=== PATIENT | female | born 1975 | race Caucasian/White ===

== ENCOUNTER → 2023-12-27 11:42 | Outpatient (REF) | payer OTHER, SELFPAY | LOC: WDC 11:42 | PROVIDERS: ATTENDING PHYSICIAN Internal Medicine | DX: Z12.31 Encounter for screening mammogram for malignant neoplasm of breast (principal) | CPT/HCPCS: 77063; 77067 ==

== ENCOUNTER → 2024-07-10 13:11 | Outpatient (REF) | payer OTHER, SELFPAY | LOC: RAD 13:11 | PROVIDERS: ATTENDING PHYSICIAN Nurse Practitioner | DX: L03.115 Cellulitis of right lower limb (principal) | CPT/HCPCS: 93971 ==

== ENCOUNTER 2024-07-22 11:37 | Emergency (ER) | payer OTHER, SELFPAY ==
[2024-07-22 11:39] VITALS: BP 189/108
[2024-07-22 12:05] LABS: % Basophils 0.1 % (0-2); % Immature Granulocytes 0.5 % (0-0.5); % Lymphocytes 22.8 % (20.5-51.1); % Neutrophils 69.6 % (42.2-75.2); Absolute Eosinophils 0.2 10^3/uL (0-0.7); Absolute Immature Granulocytes 0.1 10^3/uL (0-0.05); Absolute Lymphocytes 2.3 10^3/uL (1.2-3.4); Absolute Monocytes 0.5 10^3/uL (0.1-0.6); Absolute Neutrophils 6.9 10^3/uL (1.4-6.5); Hematocrit 36.7 % (37.0-47.0); Mean Corp Hgb Conc. 32.7 g/dL (33.0-37.0); Mean Corpuscular Hgb 27.9 pg (27.0-31.0); Mean Corpuscular Volume 85.3 fL (81.0-99.0); Mean Platelet Volume 9.3 fL (7.4-10.4); Nucleated Red Blood Cells % 0 %; Platelet Count 335 10^3/uL (130-400); Red Cell Dist. Width 13.9 % (11.5-14.5); White Blood Cell Count 9.9 10^3/uL (4.8-10.8)
[2024-07-22 12:20] LABS: ALT (SGPT) 30 U/L (0-35); AST (SGOT) 27 U/L (14-36); Alkaline Phosphatase 107 U/L (38-126); Blood Urea Nitrogen 17 mg/dl (7-17); Carbon Dioxide 30 mmol/L (22-30); Chloride 102 mmol/L (98-107); Glucose 112 mg/dl (70-99); Potassium 4.8 mmol/L (3.5-5.1); Sodium 142 mmol/L (135-145); Total Bilirubin 0.5 mg/dl (0.2-1.3); Total Protein 7.3 g/dl (6.3-8.2); eGFR > 60.00
--- NOTE | 2024-07-22 12:28 | ED.GENMED ---
History of Present Illness
<Danyelle Cunha PA-C - Last Filed: 07/22/24 20:04>
General
Chief Complaint: Skin Problem
Source: patient
Exam Limitations: none
Time Seen by Provider: 07/22/24 12:08
Nursing documentation reviewed up to this point in time: agreed with
History of Present Illness
History of Present Illness:
This is a 48 y/o female with a PMH of asthma, HTN, HLP, avinash's thyroiditis, presenting today with concerns of an abscess on her right lower extremity. Patient reports that a week ago, she started to develop pain and redness on her right lower
extremity. She was seen by her PCP and an ultrasound was performed which was negative for blood clot and she was started on Keflex for cellulitis. She finished the course of Keflex 3 days ago. She states that a few days ago that during the course of
the antibiotics, she developed an abscess which started to drain on its own. She stated that she felt warm and feverish a few days ago but that has since resolved. Today she feels well, denies fevers or chills, denies nausea or vomiting. She denies
chest pain or shortness of breath. She denies any allergies to antibiotics.
Review of Systems
<Danyelle Cunha PA-C - Last Filed: 07/22/24 20:04>
Review of Systems
All Other Systems: ROS reviewed and negative except as documented in HPI and ROS
Phy Exam
<Danyelle Cunha PA-C - Last Filed: 07/22/24 20:04>
Physical Exam
Physical Exam:
General: Patient is well appearing and in no acute distress; non-toxic
Skin: Warm and dry, there is redness and warmth to the right anterior lower extremity with a central area of fluctuance that has two small sites of active purulent drainage
Head: Normocephalic, atraumatic
Eyes: Sclera non-icteric. EOMs intact.
Cardiac: Regular rate and rhythm, no murmurs
Peripheral Vascular: 2+ dorsalis pedis and dorsalis pedis pulses bilaterally
Pulm: Normal respiratory effort
Neuro: CN II-XII intact, no focal neurologic deficits.
Psychiatric: Appropriate mood and affect.
Course
<Danyelle Cunha PA-C - Last Filed: 07/22/24 20:04>
Orders/Labs/Results
Orders:
Orders
07/22/24 11:48
CMP [Comprehensive Metabolic Panel] Urgent
Complete Blood Count/With Diff Urgent
07/22/24 14:20
Wound Culture [Wound/Abscess/Other Culture] Urgent
UZAIR Source: Abscess
Specimen Description:
Date Specimen was Collected: 07/22/24
Time Specimen was Collected: 14:13
07/22/24 14:22
Clindamycin HCl [Cleocin] 300 mg .ROUTE .STK-MED ONE
07/22/24 14:25
Clindamycin HCl [Cleocin] 450 mg PO NOW STA
Abnormal Lab Results
07/22/24
11:48
Hct 36.7 L %
(37.0-47.0)
MCHC 32.7 L g/dL
(33.0-37.0)
Abs Immat Gran (auto) 0.1 H 10^3/uL
(0-0.05)
Absolute Neuts (auto) 6.9 H 10^3/uL
(1.4-6.5)
Glucose 112 H mg/dl
(70-99)
07/22/24 11:48
07/22/24 11:48
Vital Signs
Initial and Last Documented VS:
Initial Vital Signs
Temp Pulse Resp BP Pulse Ox
98.8 F 89 16 189/108 100
07/22/24 11:39 07/22/24 11:39 07/22/24 11:39 07/22/24 11:39 07/22/24 11:39
Last Documented Vital Signs
Temp Pulse Resp BP Pulse Ox
98.8 F 89 16 189/108 100
07/22/24 11:39 07/22/24 11:39 07/22/24 11:39 07/22/24 11:39 07/22/24 11:39
<Armen Aguilar MD - Last Filed: 07/22/24 16:21>
Orders/Labs/Results
Orders:
Orders
07/22/24 11:48
CMP [Comprehensive Metabolic Panel] Urgent
Complete Blood Count/With Diff Urgent
07/22/24 14:20
Wound Culture [Wound/Abscess/Other Culture] Urgent
UZAIR Source: Abscess
Specimen Description:
Date Specimen was Collected: 07/22/24
Time Specimen was Collected: 14:13
07/22/24 14:22
Clindamycin HCl [Cleocin] 300 mg .ROUTE .STK-MED ONE
07/22/24 14:25
Clindamycin HCl [Cleocin] 450 mg PO NOW STA
Abnormal Lab Results
07/22/24
11:48
Hct 36.7 L %
(37.0-47.0)
MCHC 32.7 L g/dL
(33.0-37.0)
Abs Immat Gran (auto) 0.1 H 10^3/uL
(0-0.05)
Absolute Neuts (auto) 6.9 H 10^3/uL
(1.4-6.5)
Glucose 112 H mg/dl
(70-99)
07/22/24 11:48
07/22/24 11:48
Vital Signs
Initial and Last Documented VS:
Initial Vital Signs
Temp Pulse Resp BP Pulse Ox
98.8 F 89 16 189/108 100
07/22/24 11:39 07/22/24 11:39 07/22/24 11:39 07/22/24 11:39 07/22/24 11:39
Last Documented Vital Signs
Temp Pulse Resp BP Pulse Ox
98.8 F 89 16 189/108 100
07/22/24 11:39 07/22/24 11:39 07/22/24 11:39 07/22/24 11:39 07/22/24 11:39
Procedures
<Danyelle Cunha PA-C - Last Filed: 07/22/24 20:04>
Incision/Drainage/Joint Aspiration
Right Anterior Calf:
Anethesia: 1% Lidocaine with Epi
Preparation: cleaned with Betadine
Type of procedure: incise and drain
Nature of site: abscess
Description of abscess: greater than 3cm
Loculations broken up: No
How much fluid was obtained?: large amount
Fluid description: cloudy and serosanguinous
Treatment: left open for drainage
<Danyelle Cunha PA-C - Last Filed: 07/22/24 20:04>
MDM/Problems Addressed
Differential Diagnosis Includes:
ddx include cellulitis, abscess, erysipelas, peripheral venous disease
MDM/Problems Addressed:
Skin lesion:
48-year-old female presents today with concerns of a abscess on her right lower extremity. Patient reports that a week ago, she started to develop pain and redness on her right lower extremity. She was seen by her PCP and an ultrasound was performed
which was negative for blood clot and she was started on Keflex for cellulitis. She finished the course of Keflex 3 days ago. During a course of antibiotics, she developed an abscess that started draining on its own. Patient saw her PCP again
today in follow-up but sent her to the emergency department for abscess drainage. Here in the ER, her abscess was incised and drained, draining a moderate amount of purulent fluid. Patient did have relief of her pain with this. The wound was
cultured. Patient's lab work is unremarkable, does not meet sepsis criteria, she has no fever, no indication for admission for IV antibiotics at this time. We did start patient on clindamycin to cover for MRSA. Advised patient to return to
emergency department for admission should she not see improvement within 3 days. Patient expressed understanding. Patient stable for discharge.
Chronic conditions affecting care:
Asthma, Avinash's thyroiditis
Acute Exacerbation and/or Progression of Chronic Illness:
n/a
<Danyelle Cunha PA-C - Last Filed: 07/22/24 20:04>
*Pulse Oximetry
Patient hypoxic: no
*Critical Care Note
Total Time (30-74mins, 75-104mins- exclusive of procedures): Not Applicable
Data Reviewed
Review of Other/Old Records Reveals: Records (No previous ER physician documentation to review) and Discharge Summary (No discharge summary to review)
Source: patient and records
Prescriptions/Medications Considered But Not Given:
n/a
Further Testing Considered But Not Given:
n/a
<Danyelle Cunha PA-C - Last Filed: 07/22/24 20:04>
Patient Management
Escalation/DeEscalation of care consider admission/obs:
Patient stable for discharge
ED Attending Note
<Danyelle Cunha PA-C - Last Filed: 07/22/24 20:04>
-
Portions of this chart may have been created with voice recognition software.� Occasional wrong word or��sound alike� substitutions may have occurred due to the inherent limitations of voice recognition software.
<Armen Aguilar MD - Last Filed: 07/22/24 16:21>
ED Attending Note
Patient seen and examined by attending physician: Yes
ED Attending Note:
I have seen and evaluated the patient with a [id number] encounter. I have spoken to the advance practicer provider and involved in the medical history, the physical exam, medical decision making.
Evaluation and management service: agree unless noted differently below.
Results interpretation: agree unless noted differently below.
Focused HPI: 48-year-old female with history as documented presents with redness, swelling, pain anterior right lower leg. Noticed symptoms 2 weeks ago, seen by primary care physician and was started on Keflex and took a 10-day course. She said
she had some mild improvement initially and then symptoms worsened after completion of her course a few days ago. Seen today again in the office found to have findings concerning for an abscess and sent to the ER. She said she had fever after
initial onset 2 weeks ago has not had fever since. She denies any other complaints. She did note some spontaneous drainage over the past 24 hours.
Physical exam: Awake alert not in distress. Hypertensive otherwise normal vitals. She has oblong area of induration approximately 5 x 3 cm left anterior bender with punctate area of tissue necrosis and purulent drainage towards the center; area is
fluctuant, no crepitus. There is a wide surrounding rim of erythema/cellulitis warm and tender to the touch extending proximally towards the tibial tuberosity and distally towards the ankle as well as slightly posteriorly towards the calf. She
does have strong palpable DP pulse on the right. She has bilateral but symmetric edema in the lower extremities.
Medical Decision Makin-year-old female presents with increasing redness and area concerning for abscess on the right lower leg�just completed a course of Keflex for cellulitis on the leg. Had initial improvement and then worsened once again.
Exam is consistent with abscess and surrounding cellulitis. Abscess was I&D and here in the ER with significant purulent drainage. Left open for drainage and dressing applied. Discussed with patient option of admission for IV antibiotics given
that she did already complete a full course of Keflex versus discharge after an I&D here on different antibiotic (MRSA coverage with clindamycin) for a 48 to 72-hour trial. She strongly prefers trial of antibiotic as an outpatient rather than
admission. Using shared decision making discharged on clindamycin with plan to return if symptoms or not improving or if they are worsening at any point. Otherwise follow-up with PCP.
Discharge Plan
Departure
Patient Disposition: Home (Routine Discharge)
Date of Disposition: 07/22/24
Time of Disposition: 14:01
Patient with high blood pressure during this ER visit?: Yes
Condition: Good
Discharge Problem:
Abscess, Cellulitis
Instructions: Wound Care ([place]), [facility], BLOOD PRESSURE, Skin Abscess
Prescriptions:
New
clindamycin HCl 300 mg capsule
300 mg PO QID 7 Days Qty: 28 0RF
No Action
paroxetine HCl [Paxil] 40 mg Tablet
40 mg PO QPM
Adrenal Forte
1 cap PO DAILY
B [place]
1 cap PO DAILY
Berberine Synergy
1 cap PO DAILY
Black Cumin Seed Oil
1 cap PO BID
Coq Max Ubiquinol
1 tab PO BID
Dem Eval
1 tab PO DAILY
Dha Cap
1 cap PO QPM
K2 + D3
1 cap PO DAILY
Magnesium Buffered Cheolate
1 cap PO . DINNER & BEDTIME
Metabolic Synergy
2 cap PO TID
W-Kvbpnm-I-Cysteine
1 cap PO DAILY
[place] Pure 900
1 cap PO BID
P % P
1 cap PO DAILY
Potent C Guard
1 cap PO QPM
Ultra B12 Folate
1 tab PO DAILY
cetirizine [Zyrtec] 10 mg Tablet
10 mg PO QPM
atorvastatin 10 mg Tablet
10 mg PO QPM
lisinopril 5 mg Tablet
5 mg PO QPM
progesterone micronized 100 mg Capsule
100 mg PO QPM
Referrals:
Anastasia Hanson MD [Family Provider] -
Activity Restrictions/Additional Instructions:
Please follow up with your primary care provider.
Please change dressing once daily.
Please return to the emergency department if you do not see improvement in 3 days, if you develop fevers or chills, nausea or vomiting, chest pain, shortness of breath, or any other signs or symptoms concerning to you.
Clindamycin has been sent to your pharmacy. Please take one tablet 4 times daily for 7 days.
Interventions
Interventions:
*Risk Screen - Suicide Last Done: 07/22/24 13:47
*General Assessment Last Done: 07/22/24 11:39
*Neglect/Abuse Screening Last Done: 07/22/24 13:47
ED- Fall Risk Assessment Last Done: 07/22/24 14:50
*ED COVID-19 Vaccine History Last Done: 07/22/24 11:39
*Nursing Disposition Last Done: 07/22/24 14:50
ED-Skin Assessment Last Done: 07/22/24 13:47
Discharge Date and Time
Discharge Date/Time: 07/22/24 14:56
Print Language: AMERICAN
[2024-07-22] MEDS: CLEOCIN 450 MG PO (14:28)
== END 2024-07-22 14:56 | disposition home or self-care (01) ==
LOC: EMR 11:37
PROVIDERS: Emergency Medicine; EMERGENCY PHYSICIAN Emergency Medicine; FAMILY PHYSICIAN Internal Medicine
DX: L02.416 Cutaneous abscess of left lower limb (principal); L03.115 Cellulitis of right lower limb; I10 Essential (primary) hypertension; E78.5 Hyperlipidemia, unspecified; J45.909 Unspecified asthma, uncomplicated; E06.3 Autoimmune thyroiditis
CPT/HCPCS: 99283; 10060; 80053; 85025; 87070; 87077; 87147; 87205; 99285

== ENCOUNTER 2024-07-25 17:03 | Emergency (ER) | payer OTHER, SELFPAY ==
[2024-07-25 17:04] VITALS: BMI 59.7
[2024-07-25 17:07] VITALS: BP 111/71
[2024-07-25 18:00] VITALS: BP 146/78
--- NOTE | 2024-07-25 18:20 | ED.GENMED ---
History of Present Illness
General
Chief Complaint: Fever
Time Seen by Provider: 07/25/24 18:20
History of Present Illness
History of Present Illness:
HPI: The patient presents due to fever of 101.4. She started having COVID-like symptoms 2 days ago and tested positive for COVID today. However 3 days ago she had abscess drained in the right distal lower extremity and she was concerned because
she was instructed return here if she develops fevers.
EXAM:
GENERAL: Well appearing in no distress, elevated BMI
HEENT: Moist oral mucosa
CARDIOVASCULAR: No murmurs, normal heart rate, regular rhythm, No chest wall tenderness
PULMONARY: No respiratory distress, breath sounds are clear and equal
ABDOMEN: Soft with no peritoneal signs, no tenderness
NEUROLOGIC: Excellent strength all extremities, no coordination deficits
PSYCHIATRIC: Appropriate mental status, normal insight and judgement
EXTREMITIES: Erythema and warmth noted to the distal right lower extremity along with a raised lesion at the recent surgical site but I am unable to drain any further pus
SKIN: As above
TIME OF INITIAL ENCOUNTER: 6:30 PM
NUMBER AND COMPLEXITY OF PROBLEMS ADDRESSED AT THE ENCOUNTER
� Chronic conditions affecting care: Asthma, CPAP/VERA, high blood pressure, hyperlipidemia, anxiety
� Acute Exacerbation and/or Progression of Chronic Illness: Is an acute problem
� Differential Diagnosis includes: Cellulitis, abscess, based on vital signs doubt sepsis
AMOUNT AND/OR COMPLEXITY OF DATA TO BE REVIEWED AND ANALYZED
� I performed an independent evaluation of and my interpretation is:
EKG:
CT:
X-rays:
Laboratory Studies: White count is 9.3 with lymphocytopenia
Other:
� Review of other/old records: Labs from 3 days ago showed a white count of 9.9, abscess wound culture grew group C strep
� Clinical information was obtained by an independent historian: I spoke to the at bedside
� Prescriptions/Medications Considered but not given: Considered switching to different antibiotic based on micro report from a few days ago however the patient states overall she is improving
� Further testing considered but not performed: Considered blood cultures however I suspect that her fever is related to COVID and vital signs are not consistent with sepsis
RISK OF COMPLICATIONS AND/OR MORBIDITY OR MORTALITY OF PATIENT MANAGEMENT
� Social determinants of health affecting care: Lives at home
� Discussion with other providers:
� Escalation of care including admission/observation vs risk of discharge considered: Overall, the patient is well-appearing with vital signs not consistent with sepsis. Suspect that her fever is related to which is newly
positive just today. We offered and considered Paxlovid however the patient ultimately declines.
Phy Exam
Physical Exam
Physical Exam:
See HPI
Course
Orders/Labs/Results
Orders:
Orders
07/25/24 18:35
Complete Blood Count/With Diff Urgent
Abnormal Lab Results
07/25/24
18:35
RBC 4.06 L 10^6/uL
(4.20-5.40)
Hgb 11.2 L g/dL
(12.0-16.0)
Hct 33.3 L %
(37.0-47.0)
Absolute Neuts (auto) 7.9 H 10^3/uL
(1.4-6.5)
Absolute Lymphs (auto) 0.7 L 10^3/uL
(1.2-3.4)
Absolute Monos (auto) 0.7 H 10^3/uL
(0.1-0.6)
Neutrophils % 84.8 H %
(42.2-75.2)
Lymphocytes % 7.7 L %
(20.5-51.1)
07/25/24 18:35
Vital Signs
Initial and Last Documented VS:
Initial Vital Signs
Temp Pulse Resp BP Pulse Ox
99.5 F 112 18 111/71 96
07/25/24 17:07 09/07/24 17:07 07/25/24 17:07 07/25/24 17:07 07/25/24 17:07
Last Documented Vital Signs
Temp Pulse Resp BP Pulse Ox
99.5 F 91 16 146/78 96
07/25/24 17:07 07/25/24 18:00 07/25/24 18:00 07/25/24 18:28 07/25/24 18:28
*Critical Care Note
Total Time (30-74mins, 75-104mins- exclusive of procedures): Not Applicable
ED Attending Note
-
Portions of this chart may have been created with voice recognition software.� Occasional wrong word or��sound alike� substitutions may have occurred due to the inherent limitations of voice recognition software.
Discharge Plan
Departure
Patient Disposition: Home (Routine Discharge)
Date of Disposition: 07/25/24
Time of Disposition: 18:54
Patient with high blood pressure during this ER visit?: Yes
Discharge Problem:
Acute febrile illness, COVID-19
Prescriptions:
No Action
paroxetine HCl [Paxil] 40 mg Tablet
40 mg PO QPM
Adrenal Forte
1 cap PO DAILY
B [place]
1 cap PO DAILY
Berberine Synergy
1 cap PO DAILY
Black Cumin Seed Oil
1 cap PO BID
Coq Max Ubiquinol
1 tab PO BID
Dem Eval
1 tab PO DAILY
Dha Cap
1 cap PO QPM
K2 + D3
1 cap PO DAILY
Magnesium Buffered Cheolate
1 cap PO . DINNER & BEDTIME
Metabolic Synergy
2 cap PO TID
L-Bziuts-Y-Cysteine
1 cap PO DAILY
[place] Pure 900
1 cap PO BID
P % P
1 cap PO DAILY
Potent C Guard
1 cap PO QPM
Ultra B12 Folate
1 tab PO DAILY
cetirizine [Zyrtec] 10 mg Tablet
10 mg PO QPM
atorvastatin 10 mg Tablet
10 mg PO QPM
lisinopril 5 mg Tablet
5 mg PO QPM
progesterone micronized 100 mg Capsule
100 mg PO QPM
clindamycin HCl 300 mg capsule
300 mg PO QID 7 Days Qty: 28 0RF
Activity Restrictions/Additional Instructions:
I suspect that your symptoms including fever are related to COVID-19. Today, your white blood cell count is slightly lower than it was the other day and your lymphocyte count is much lower than it was the other day consistent with COVID. Return
here if worse or any other concerns.
Interventions
Interventions:
*Risk Screen - Suicide Last Done: 07/25/24 18:26
*General Assessment Last Done: 07/25/24 18:26
*Neglect/Abuse Screening Last Done: 07/25/24 18:26
ED- Fall Risk Assessment Last Done: 07/25/24 18:26
*ED COVID-19 Vaccine History Last Done: 07/25/24 18:26
ED- Neurological Assessment Last Done: 07/25/24 18:26
ED-Skin Assessment Last Done: 07/25/24 18:26
Discharge Date and Time
Print Language: DIVEHI
[2024-07-25 18:28] VITALS: BP 146/78
[2024-07-25 18:45] LABS: % Basophils 0.1 % (0-2); % Eosinophils 0.2 % (0-6); % Immature Granulocytes 0.2 % (0-0.5); % Lymphocytes 7.7 % (20.5-51.1); % Neutrophils 84.8 % (42.2-75.2); Absolute Lymphocytes 0.7 10^3/uL (1.2-3.4); Absolute Monocytes 0.7 10^3/uL (0.1-0.6); Absolute Neutrophils 7.9 10^3/uL (1.4-6.5); Hematocrit 33.3 % (37.0-47.0); Hemoglobin 11.2 g/dL (12.0-16.0); Mean Corp Hgb Conc. 33.6 g/dL (33.0-37.0); Mean Corpuscular Hgb 27.6 pg (27.0-31.0); Mean Platelet Volume 9.2 fL (7.4-10.4); Nucleated Red Blood Cells % 0 %; Platelet Count 282 10^3/uL (130-400); Red Blood Cell Count 4.06 10^6/uL (4.20-5.40); Red Cell Dist. Width 14.3 % (11.5-14.5); White Blood Cell Count 9.3 10^3/uL (4.8-10.8)
== END 2024-07-25 19:02 | disposition home or self-care (01) ==
LOC: EMR 17:03
PROVIDERS: EMERGENCY PHYSICIAN Emergency Medicine; FAMILY PHYSICIAN Internal Medicine
DX: U07.1 COVID-19 (principal); R50.9 Fever, unspecified; R03.0 Elevated blood-pressure reading, without diagnosis of hypertension; G47.33 Obstructive sleep apnea (adult) (pediatric); I10 Essential (primary) hypertension; J45.909 Unspecified asthma, uncomplicated; E78.5 Hyperlipidemia, unspecified; F41.9 Anxiety disorder, unspecified; Z98.890 Other specified postprocedural states; Z88.1 Allergy status to other antibiotic agents; Z88.8 Allergy status to other drugs, medicaments and biological substances; Z91.018 Allergy to other foods
CPT/HCPCS: 99283; 85025

== ENCOUNTER 2024-08-24 18:20 | Inpatient (IN) | payer OTHER, SELFPAY ==
[2024-08-24 14:30] VITALS: BP 103/67
[2024-08-24 14:52] LABS: % Basophils 0.4 % (0-2); % Immature Granulocytes 0.7 % (0-0.5); % Lymphocytes 5.3 % (20.5-51.1); % Monocytes 2.5 % (1.7-9.3); % Neutrophils 91.1 % (42.2-75.2); Absolute Basophils 0.1 10^3/uL (0-0.2); Absolute Immature Granulocytes 0.1 10^3/uL (0-0.05); Absolute Lymphocytes 1.1 10^3/uL (1.2-3.4); Absolute Monocytes 0.5 10^3/uL (0.1-0.6); Absolute Neutrophils 18.1 10^3/uL (1.4-6.5); Hematocrit 39.5 % (37.0-47.0); Hemoglobin 12.9 g/dL (12.0-16.0); Mean Corp Hgb Conc. 32.7 g/dL (33.0-37.0); Mean Corpuscular Hgb 26.9 pg (27.0-31.0); Mean Corpuscular Volume 82.5 fL (81.0-99.0); Mean Platelet Volume 9.4 fL (7.4-10.4); Nucleated Red Blood Cells % 0 %; Platelet Count 225 10^3/uL (130-400); Red Blood Cell Count 4.79 10^6/uL (4.20-5.40); Red Cell Dist. Width 14.6 % (11.5-14.5); White Blood Cell Count 19.9 10^3/uL (4.8-10.8)
[2024-08-24 15:14] LABS: ALT (SGPT) 43 U/L (0-35); AST (SGOT) 47 U/L (14-36); Albumin 3.8 g/dl (3.5-5.0); Alkaline Phosphatase 85 U/L (38-126); Blood Urea Nitrogen 17 mg/dl (7-17); Calcium 9.1 mg/dl (8.4-10.2); Carbon Dioxide 22 mmol/L (22-30); Chloride 100 mmol/L (98-107); Glucose 110 mg/dl (70-99); Lipase 39 U/L (23-300); Potassium 4.1 mmol/L (3.5-5.1); Sodium 134 mmol/L (135-145); Total Bilirubin 0.6 mg/dl (0.2-1.3); Total Protein 6.5 g/dl (6.3-8.2); eGFR > 60.00
[2024-08-24 16:51] VITALS: BP 134/78
--- NOTE | 2024-08-24 17:41 | ED.GENMED ---
History of Present Illness
General
Chief Complaint: Abdominal Symptoms
Source: patient
Time Seen by Provider: 08/24/24 17:21
History of Present Illness
History of Present Illness:
49-year-old female with past medical history of hypertension and hyperlipidemia presenting to the emergency department for evaluation of right lower extremity pain, erythema and edema has been gradually worse over the last 2 days, low-grade fever
with a Tmax of 100 yesterday, nausea and decreased p.o. intake since yesterday morning. Patient states she was recently treated for cellulitis and abscess to the right lower extremity about a month ago, completed a course of clindamycin and
reportedly felt better. Patient also had an ultrasound to rule out DVT which she reports was negative. Patient states no trauma or new injuries to the right lower extremity, denies any weakness/numbness, color changes, cold or heat intolerance.
Past History
Past History
ED Past Medical History: HTN, Hypercholesterolemia and Psychiatric
ED Past Surgical History: Gynecological
Social History
Tobacco: Non-smoker
Alcohol: None
Drug: None
Personal:
Living: with family
Review of Systems
Review of Systems
All Other Systems: ROS reviewed and negative except as documented in HPI and ROS
Phy Exam
Physical Exam
Physical Exam:
GENERAL: Alert , in no apparent distress
HEAD: NCAT
EYE: conjunctiva clear
NECK: Supple
ENT: o/p clr, mmm.
CARDIAC: Regular rate and rhythm
LUNGS: Clear breath sounds bilaterally, no acute respiratory distress, no wheezes/rales/rhonchi
NEUROLOGICAL: Alert and oriented
SKIN: Warm and dry, circumferential erythema and edema from the distal ankle to the proximal tibia. There is overlying skin breakdown from where patient had her previous abscess reports does not look any different today.
MUSCULOSKELETAL: well perfused. Easily palpable pedal and tibial pulses. Cap refill less than 2 seconds. Sensation is intact to light touch
PSYCH: Normal and appropriate interaction.
Scores
Heart Failure Risk
Heart Failure Risk Score: Not Applicable
Heart Score for Chest Pain Patients
STEMI patient?: Not applicable
Withdrawal Assessment of Alcohol
Withdrawal Assessment Completed?: Not applicable
Course
Orders/Labs/Results
Orders:
Orders
08/24/24 14:36
Complete Blood Count/With Diff Urgent
Comprehensive Metabolic Panel Urgent
Lipase Urgent
08/24/24 17:31
Piperacillin/Tazo 3.375 Gram [Zosyn] 3.375 gram in 50 ml IV NOW
CR Leg Tibia/fibula Right 2 Vw Urgent
Comment:
Reason For Exam: cellulitis/edema/erythema
08/24/24 17:44
Lactic Acid Q4H
Comment: CANCEL 2nd LACTIC ACID IF 1st LACTIC ACID IS LESS THAN 2
Blood Culture Urgent
UZAIR Source: Blood/Venous
Specimen Description:
08/24/24 17:56
Blood Culture Routine
UZAIR Source: Blood/Venous
Specimen Description:
08/24/24 17:57
Admit/Transfer Patient As Directed
Co-Sign Provider:
Level of Care: Inpatient admission
Assign to:: Telemetry
Physician / Group: Dr Sanchez
Diagnosis: Cellulitis
Reason for Telemetry: Arrhythmia
Date to Stop Telemetry: 08/27/24
Time to Stop Telemetry: 11:00
Reason for Hospitalization: pte p/w worsening cellulitis rle.Requires iv abx
Expected length of stay greater than two midnights?: Yes
ELOS- Estimated Length of Stay in days: 2
I certify the patient meets the requirements for IP care: Yes
PRN Pain Medication Management As Directed
May give lesser potent ordered pain med per pt: Yes
preference::
Protocol:: Medication orders for pain may be administered in a
manner that supports deferring to patient preference
when the pt is:
- Requesting an ordered lesser potent pain medication.
Least to most potent pain medications are defined
as: acetaminophen < NSAID < tramadol < opioids
(morphine, oxycodone, hydromorphone).
- Requesting a lesser dose of the same medication IF
ORDERED.
- Requesting a less intrusive route of administration
if both routes are prescribed by the provider (PO <
IV).
08/24/24 17:58
Code Status As Directed
Resuscitation Status: Full Code
08/24/24 18:00
0.9% Sodium Chloride 1000 ml [Nss] 1,000 ml IV BOLUS
08/24/24 18:16
Vancomycin [Vancocin] 2,000 mg 0.9% Sodium Chloride 500 ml [Nss] 500 ml IV NOW
08/24/24 21:45
Lactic Acid Q4H
Comment: CANCEL 2nd LACTIC ACID IF 1st LACTIC ACID IS LESS THAN 2
08/27/24 11:00
DC Protocol for Telemetry ONCE
Abnormal Lab Results
08/24/24
14:36
WBC 19.9 H 10^3/uL
(4.8-10.8)
MCH 26.9 L pg
(27.0-31.0)
MCHC 32.7 L g/dL
(33.0-37.0)
RDW 14.6 H %
(11.5-14.5)
Abs Immat Gran (auto) 0.1 H 10^3/uL
(0-0.05)
Absolute Neuts (auto) 18.1 H 10^3/uL
(1.4-6.5)
Absolute Lymphs (auto) 1.1 L 10^3/uL
(1.2-3.4)
Immature Gran % 0.7 H %
(0-0.5)
Neutrophils % 91.1 H %
(42.2-75.2)
Lymphocytes % 5.3 L %
(20.5-51.1)
Sodium 134 L mmol/L
(135-145)
Glucose 110 H mg/dl
(70-99)
AST 47 H U/L
(14-36)
ALT 43 H U/L
(0-35)
08/24/24 14:36
08/24/24 14:36
Vital Signs
Initial and Last Documented VS:
Initial Vital Signs
Temp Pulse Resp BP Pulse Ox
98.0 F 106 18 103/67 95
08/24/24 14:30 08/24/24 14:30 08/24/24 14:30 08/24/24 14:30 08/24/24 14:30
Last Documented Vital Signs
Temp Pulse Resp BP Pulse Ox
98.0 F 90 18 134/78 100
08/24/24 14:30 08/24/24 16:51 08/24/24 14:30 08/24/24 16:51 08/24/24 16:51
MDM/Problems Addressed
Differential Diagnosis Includes:
cellulitis, necrotizing fasciitis, abscess, PVD, PAD
MDM/Problems Addressed:
49-year-old female presenting to the emergency department for evaluation of worsening right lower extremity erythema, pain, edema and nausea over the last 24 hours. Fever with a Tmax of 100 yesterday. Labs initiated in triage shows a white count
of nearly 20,000. Mild LFT elevation which appears nonspecific at this time. Due to the leukocytosis combined with patient's clear right lower extremity infection we ordered a lactate and blood cultures. Broad-spectrum antibiotics ordered. X-ray
of the tib-fib region ordered to rule out any soft tissue gas. Plan for admission
*Radiology
Radiology exam reviewed: preliminary read by ED provider (No soft tissue gas)
*Pulse Oximetry
Patient hypoxic: no
*Critical Care Note
Total Time (30-74mins, 75-104mins- exclusive of procedures): Not Applicable
Patient Management
Discussion with other providers: Hospitalist
Escalation/DeEscalation of care consider admission/obs:
Hospitalist team accepts patient for continued evaluation and treatment of right lower extremity cellulitis.
ED Attending Note
-
Portions of this chart may have been created with voice recognition software.� Occasional wrong word or��sound alike� substitutions may have occurred due to the inherent limitations of voice recognition software.
Discharge Plan
Departure
Patient Disposition: Admit
Date of Disposition: 08/24/24
Time of Disposition: 17:41
Presentation/result/management discussed w/ accepting MD/DO: Hospitalist
Discharge Problem:
Cellulitis of leg, right
Interventions
Interventions:
*Risk Screen - Suicide Last Done: 08/24/24 14:30
*General Assessment Last Done: 08/24/24 17:20
*Neglect/Abuse Screening Last Done: 08/24/24 14:30
*ED COVID-19 Vaccine History Last Done: 08/24/24 17:19
EK-Fkglog-Hgoxoroilh Assessment Last Done: 08/24/24 17:20
[2024-08-24] MEDS: ZOSYN 50 IV (17:46)
--- NOTE | 2024-08-24 17:52 | HPS.HSE ---
Family Physician
-
Family Physician:
Chief Complaint
-
Right lower extremity erythema
History of Present Illness
Patient 49 years old female with history of cellulitis in the past, hypertension, dyslipidemia, impaired fasting glucose, obesity, VERA, bilateral venous insufficiency, came into the hospital for erythema on right lower extremity. Patient noticed
since yesterday has been having progressive erythema in the right lower extremity associated with tenderness and warmth. She is also having subjective fevers and chills at home. She is also having nausea and vomiting. No diarrhea. No abdominal
pain. She noticed she had an infection on her right lower extremity about a month ago and she had to come to the hospital and had an I&D in the ER and she improved but then infection returned this time similar to last time but without fluctuance.
In the ER she had a white count of 19. Blood cultures drawn in the ER. Lactate drawn but pending results. She was referred to hospitalist service for further evaluation.
Medical History
Past Medical History
Past Medical History: Reports Other (Hypertension, depression, obesity,history of cellulitis in the past, dyslipidemia, impaired fasting glucose, obesity, VERA, bilateral venous insufficiency)
Past Surgical History: Reports Other (Surgical debridement of an abscess in her leg.)
Social History
Tobacco: Non-smoker
Alcohol: None
Drug: None
Family History
Family History: Not pertinent
Allergies / Home Medications
Allergies reflects when Allergies were last updated in [facility].
Home Medications with original date entered in [facility]
Allergy/Medication List:
Allergies
Allergy/AdvReac Type Severity Reaction Status Date / Time
amoxicillin [From Augmentin] Allergy bad upset Verified 08/24/24 14:33
stomach
clavulanic acid Allergy bad upset Verified 08/24/24 14:33
[From Augmentin] stomach
gluten Allergy intolerant Verified 08/24/24 14:33
pseudoephedrine Allergy increased Verified 08/24/24 14:33
[From Sudafed] heart rate
Home Medications
Adrenal Forte 1 cap PO DAILY 11/21/23
B D[place] 1 cap PO DAILY 11/21/23
Berberine Synergy 1 cap PO DAILY 11/21/23
Black Cumin Seed Oil 1 cap PO BID 11/21/23
Coq Max Ubiquinol 1 tab PO BID 11/21/23
Dem Eval 1 tab PO DAILY 11/21/23
Dha Cap 1 cap PO QPM 11/21/23
K2 + D3 1 cap PO DAILY 11/21/23
Magnesium Buffered Cheolate 1 cap PO . DINNER & BEDTIME 11/21/23
Metabolic Synergy 2 cap PO TID 11/21/23
S-Aipznf-Y-Cysteine 1 cap PO DAILY 11/21/23
[place] Pure 900 1 cap PO BID 11/21/23
P % P 1 cap PO DAILY 11/21/23
Potent C Guard 1 cap PO QPM 11/21/23
Ultra B12 Folate 1 tab PO DAILY 11/21/23
atorvastatin 10 mg tablet 10 mg PO HS 11/21/23
lisinopril 5 mg tablet 5 mg PO HS 11/21/23
paroxetine HCl 40 mg tablet (Paxil) 40 mg PO HS 11/21/23
progesterone micronized 100 mg capsule 100 mg PO HS 11/21/23
fexofenadine 180 mg tablet 180 mg PO DAILY 08/24/24
Review of Systems
-
A 12 point ROS was completed and negative except as noted: Yes
Physical Exam
Vital Signs
Vital Signs
Temp Pulse Resp BP Pulse Ox
98.0 F 90 18 134/78 100
08/24/24 14:30 08/24/24 16:51 08/24/24 14:30 08/24/24 16:51 08/24/24 16:51
Physical exam:
General: Acutely ill. Non-toxic appearance at the moment
HEENT: Normocephalic, Atraumatic and Moist Mucous Membranes
Respiratory: Clear to Auscultation; Negative Wheezes, Rales or Rhonchi
Cardiac: Regular Rhythm and S1/S2
GI: Soft, Nontender and Nondistended
Musculoskeletal: Right lower extremity significant erythema on most of her right lower extremity with almost 100% circumference as well associated with tenderness and warmth. No fluctuance. No Clubbing, No Cyanosis and there is bilateral edema
Neuro: Awake, Alert and Oriented
Psych: Calm
Physical Exam
General: Other
Laboratory Results
-
08/24/24 14:36
08/24/24 14:36
Laboratory Results
Total Bilirubin 0.6 mg/dl (0.2-1.3) 08/24/24 14:36
AST 47 U/L (14-36) H 08/24/24 14:36
ALT 43 U/L (0-35) H 08/24/24 14:36
Alkaline Phosphatase 85 U/L (38-126) 08/24/24 14:36
Lipase 39 U/L (23-300) 08/24/24 14:36
Data Reviewed
-
Lab Data: Labs Reviewed by me
Impression/Plan
-
IMPRESSION:
Patient 49 years old female came into the hospital with right lower extremity cellulitis. Likely strep cellulitis. Increased morbidity mortality therefore will need IV antibiotics and monitoring the hospital.
Impression:
Right lower extremity cellulitis
Sepsis due to cellulitis with tachycardia, tachypnea, leukocytosis, and source right lower extremity.
Hyponatremia
Conditions prior to admission:
Hypertension
Hyperlipidemia
Depression anxiety
Obesity
VERA
PLAN:
IV fluids, normal saline 125 cc/h
IV antibiotics-->given Zosyn and vancomycin in the ER--> will continue with IV cefazolin 2 g every 8 hours.
She had an apparent reaction to amoxicillin and penicillins but mostly nausea and GI upset but no rash or hives or shortness of breath.
Last culture from 07/22 was group C streptococcus
Hold antihypertensives to avoid confounding factors for hypotension in the setting of sepsis.
Seen x-ray of the tibia-fibula and no evidence of gas in the subcutaneous tissue
Continue statins and antidepressant and hormone replacement
Pain control
Elevate right lower extremity
Trend WBC count and temperature curve
Consider ID consult if not improvement
DVT prophylaxis with Lovenox
CODE STATUS full code
Will give further commendations based on clinical course.
Time spent 75 minutes
[2024-08-24 18:11] LABS: Lactic Acid 1.4 mmol/L (0.7-2.0)
[2024-08-24] MEDS: NSS 1000 IV ×2 (18:16→20:27)
[2024-08-24 18:41] VITALS: BMI 57.5
[2024-08-24 18:53] VITALS: BP 118/62
[2024-08-24] MEDS: LOVENOX 40 MG SC (19:10)
[2024-08-24] MEDS: TYLENOL 650 MG PO (19:11)
[2024-08-24] MEDS: PAXIL 40 MG PO (20:26)
[2024-08-24] MEDS: LIPITOR 10 MG PO (20:27)
[2024-08-24 22:34] LABS: Lactic Acid 0.9 mmol/L (0.7-2.0)
[2024-08-24 23:30] VITALS: BP 109/62
[2024-08-25] VITALS (7 sets, daily range): BP systolic 127–164; BP diastolic 57–97; PULSE 87
[2024-08-25] MEDS: ANCEF 10 IV ×4 (00:04→23:02)
--- NOTE | 2024-08-25 01:36 | PTCARENOTE ---
Patient brought to room by water supply technician via stretcher at approximately 1850. Patient's spouse at bedside. Patient with right LE cellulitis that has been a chronic per patient. Patient denies any pain in LE. Temperature upon arrival to 3W is 102.1. PO
Tylenol given. POC and IV abx reviewed with patient and spouse. Patient denies any pain to RLE, patient aware pain medication available and to ask when/if needed. Care ongoing, will continue to monitor.
[2024-08-25] MEDS: NSS 1000 IV (05:44)
[2024-08-25 07:23] LABS: % Basophils 0.2 % (0-2); % Eosinophils 0.2 % (0-6); % Immature Granulocytes 0.4 % (0-0.5); % Monocytes 4.6 % (1.7-9.3); % Neutrophils 84.6 % (42.2-75.2); Absolute Immature Granulocytes 0.1 10^3/uL (0-0.05); Absolute Lymphocytes 1.2 10^3/uL (1.2-3.4); Absolute Monocytes 0.6 10^3/uL (0.1-0.6); Absolute Neutrophils 10.4 10^3/uL (1.4-6.5); Hematocrit 32.9 % (37.0-47.0); Mean Corp Hgb Conc. 33.4 g/dL (33.0-37.0); Mean Corpuscular Hgb 27.4 pg (27.0-31.0); Mean Corpuscular Volume 81.8 fL (81.0-99.0); Mean Platelet Volume 9.5 fL (7.4-10.4); Nucleated Red Blood Cells % 0 %; Platelet Count 188 10^3/uL (130-400); Red Blood Cell Count 4.02 10^6/uL (4.20-5.40); Red Cell Dist. Width 14.6 % (11.5-14.5); White Blood Cell Count 12.3 10^3/uL (4.8-10.8)
[2024-08-25 07:43] LABS: Blood Urea Nitrogen 14 mg/dl (7-17); Calcium 8.1 mg/dl (8.4-10.2); Carbon Dioxide 24 mmol/L (22-30); Chloride 104 mmol/L (98-107); Estimated Creatinine Clearance 114 ml/min; Glucose 113 mg/dl (70-99); Potassium 3.5 mmol/L (3.5-5.1); Sodium 136 mmol/L (135-145); eGFR > 60.00
[2024-08-25] MEDS: TYLENOL 650 MG PO (07:58)
--- NOTE | 2024-08-25 08:13 | W.PN.HOSP.TC ---
Today's Communication/Plan
-
IV antibiotics. Resume antihypertensives.
Assessment / Plan
Assessment / Plan
Physical exam:
General: Acutely ill. Non-toxic appearance at the moment
HEENT: Normocephalic, Atraumatic and Moist Mucous Membranes
Respiratory: Clear to Auscultation; Negative Wheezes, Rales or Rhonchi
Cardiac: Regular Rhythm and S1/S2
GI: Soft, Nontender and Nondistended
Musculoskeletal: Right lower extremity improving erythema on most of her right lower extremity with almost 100% circumference as well associated with tenderness and warmth. No fluctuance. No Clubbing, No Cyanosis and there is bilateral edema
Neuro: Awake, Alert and Oriented
Psych: Calm
A/P:
Impression:
Right lower extremity cellulitis
Sepsis due to cellulitis with fever, tachycardia, tachypnea, leukocytosis, and source right lower extremity cellulitis.
Hyponatremia, 134-->136
Leukocytosis, 19.9-->12.3
Relative hypotension
Hypertension
Conditions prior to admission:
Hyperlipidemia
Depression anxiety
Obesity
VERA
PLAN:
Stop IV fluids
Continue IV cefazolin 2 g every 8 hours
Blood cultures pending but no growth so far
Restart antihypertensives today
ID consult
Seen x-ray of the tibia-fibula and no evidence of gas in the subcutaneous tissue
Continue statins and antidepressant and hormone replacement
Pain control
Elevate right lower extremity
Trend WBC count and temperature curve
DVT prophylaxis with Lovenox
CODE STATUS full code
Anticipated Discharge: 24 - 48 hours
Subjective/Interval History
-
Date of Service: August 25, 2024
Patient erythema is receding. She had fever earlier today at 101.1 Fahrenheit
Objective Data
-
Labs:
Laboratory Results
08/25/24
07:10
WBC 12.3 H
Hgb 11.0 L
Hct 32.9 L
Plt Count 188
Sodium 136
Potassium 3.5
Chloride 104
Carbon Dioxide 24
BUN 14
Creatinine 0.8
Glucose 113 H
Calcium 8.1 L
Vital Signs:
Vital Signs
Temp Pulse Resp BP Pulse Ox
101.1 F H 93 22 164/97 95
08/25/24 07:29 08/25/24 07:29 08/25/24 07:29 08/25/24 07:29 08/25/24 07:29
I&O
08/24/24 08/25/24 08/26/24
06:59 06:59 06:59
Intake Total 1989
Balance 1989
--- NOTE | 2024-08-25 12:16 | CON.ID ---
Consultation
-
Date/Time Consultation Requested: 08/25/2024 0835
Date/Time Consultation Performed: 08/25/2024 1215
Requesting Provider: Dr. Haja Sanchez
Performing Provider: Dr. Jossy Bahena
Reason for Consultation: Recurrent cellulitis
Chief Complaint / Past History
Chief Complaint
Right leg redness
History of Present Illness
49-year-old female with history of hypertension, class III obesity BMI 57, who presented to the hospital on August 24 with recurrent right lower extremity erythema and swelling. In June, she developed an abrasion on the dorsum part of her right
foot from the sneaker inside label rubbing against her foot. Few weeks later she developed redness and significant swelling of her right leg. Her PCP prescribed cephalexin 500 mg 3 times daily x 10 days which she completed. While on cephalexin,
she noted an abscess on the anterior bender. The abscess opened and was oozing pus. She presented to the ER on July 22 at which time the abscess was drained and she was discharged on clindamycin. The abscess culture grew group C Streptococcus.
2 days ago she felt unwell. Yesterday her noted that the right leg from the ankle up was very swollen and bright red. Positive subjective fever and chills. She came to the ER. While waiting in the ER, the redness continued to progress up
her leg to below the knee. Temperature was 102.1. White count of 19.9. She was started on cefazolin. Today, the leg redness and discomfort has improved.
Past History
Additional Past Medical History:
Dennis thyroiditis
HTN
HLD
asthma
Class III obesity BMI 57
VERA
depression
Allergy History:
amoxicillin [From Augmentin] Allergy (Verified 08/24/24 14:33)
bad upset stomach
clavulanic acid [From Augmentin] Allergy (Verified 08/24/24 14:33)
bad upset stomach
gluten Allergy (Verified 08/24/24 14:33)
intolerant
pseudoephedrine [From Sudafed] Allergy (Verified 08/24/24 14:33)
increased heart rate
Medications Reviewed: Yes
Current Antibiotics:
cefazolin d2
Social History
Tobacco: Non-Smoker
Alcohol: None
Drug: None
Personal:
Living: With Family
Family History
Family History: Not Pertinent
Review of Systems
Review of Systems
General: Fever, Chills and Change in Appetite
HEENT: Negative Lymphadenopathy, Stiff Neck, Sinus Problems, Headache or Pharyngitis
Cardiovascular: Negative Chest Pain or Dyspnea
Respiratory: Negative Dyspnea or Cough
Gasteroenterology: Negative Nausea, Vomiting or Diarrhea
Genital / Urological: Negative Dysuria or Flank Pain
Neurological: Negative Headache or Dizziness
All systems: All other systems were reviewed and were negative
Vital Signs
Temp Pulse Resp BP Pulse Ox
99.5 F 86 22 155/94 97
08/25/24 11:12 08/25/24 11:12 08/25/24 11:12 08/25/24 11:12 08/25/24 11:12
Selected Entries
08/24/24
18:53 08/25/24
07:29
Temp 102.1 F H 101.1 F H
Physical Exam
Physical Exam
Constitutional: No Acute Distress and Comfortable
Eyes: No Conjunctival Hemorrhage and Sclera Anicteric
Cardiovascular: Regular Rate and S1/S2
Pulmonary: Clear
Gastrointestinal: Soft, Non Tender, Non Distended and Normal Bowel Sounds
Extremities: Edema (RLE 3+ edema) and Erythema (RLE + erythema from ankle to below knee anteriorly and posteriorly, mildly warm)
Wound: Other (Dorsum of right foot large wound superficial with dry peeling skin. Right bender + scar/scab over previous drained abscess)
Lab / Diagnostic Study Results
08/25/24 07:10
08/25/24 07:10
Abs Immat Gran (auto) 0.1 10^3/uL (0-0.05) H 08/25/24 07:10
Absolute Neuts (auto) 10.4 10^3/uL (1.4-6.5) H 08/25/24 07:10
Absolute Lymphs (auto) 1.2 10^3/uL (1.2-3.4) 08/25/24 07:10
Absolute Monos (auto) 0.6 10^3/uL (0.1-0.6) 08/25/24 07:10
Absolute Basos (auto) 0.0 10^3/uL (0-0.2) 08/25/24 07:10
Immature Gran % 0.4 % (0-0.5) 08/25/24 07:10
Neutrophils % 84.6 % (42.2-75.2) H 08/25/24 07:10
Lymphocytes % 10.0 % (20.5-51.1) L 08/25/24 07:10
Monocytes % 4.6 % (1.7-9.3) 08/25/24 07:10
Eosinophils % 0.2 % (0-6) 08/25/24 07:10
Basophils % 0.2 % (0-2) 08/25/24 07:10
Lactic Acid 0.9 mmol/L (0.7-2.0) 08/24/24 22:15
Microbiology Results
Micro:
08/24/24 22:27 MRSA Screen - Pending
Nose
08/24/24 17:56 Blood Culture - Pending
Blood/Venous
08/24/24 17:44 Blood Culture - Pending
Blood/Venous
Assessment / Plan
# Recurrent RLE cellulitis
# Fever
# Leukocytosis
- recent RLE abscess drained in ED 07/22/24; cx + Group C strep.
-Agree with cefazolin.
- follow blood cx's
-Apply ALLAN-Wrap compression
-Trend temps, wbc
[2024-08-25] MEDS: ZESTRIL 5 MG PO ×2 (12:21→22:56)
[2024-08-25] MEDS: NSS IV (12:25)
--- NOTE | 2024-08-25 14:13 | CM ---
Reviewed chart, met with patient to obtain information for assessment. Patient stated that she lives with her spouse in a single two story home with two steps to enter. She described herself as independent with her ADLs, personal care, dressing and
bathing. 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 She drives and can get herself to her appointments and do all of her own shopping.
Patient denied any DME in her home.
She has not ever had VN services.
Patient has a prescription plan and uses, [facility] pharmacy on [address] in [place].
Patient's PCP is, Anastasia Hanson.
Patient stated that she feels she will be able to return home when she is stable medically.
Plan: Case management will continue to follow and assist with discharge planning. Home when cleared.
--- NOTE | 2024-08-25 15:25 | PTOTSP ---
Pt is feeling better today. She is independent with transfers and ambulation in hallway and stairs. No acute PT needs were identified. PT will sign off.
[2024-08-25] MEDS: LOVENOX 40 MG SC (17:08)
[2024-08-25] MEDS: LIPITOR 10 MG PO (22:55)
[2024-08-25] MEDS: PAXIL 40 MG PO (23:01)
[2024-08-25] MEDS: FLUSH (NSS) 2 FLUSH IV (23:02)
--- NOTE | 2024-08-26 02:27 | PTCARENOTE ---
@2200;Pt stated,'Can I have this stocking taken off.It is digging into my leg and hurts.'Jude wrap removed and RLE elevated on 2 pillows. Pt stated it feels better already'. Right lower leg remains deyvi swollen and warm to touch with scab on
anterior bender.
[2024-08-26 03:22] VITALS: BP 176/92
[2024-08-26 06:00] VITALS: BP 109/56
[2024-08-26 07:01] LABS: % Basophils 0.2 % (0-2); % Eosinophils 0.4 % (0-6); % Immature Granulocytes 0.4 % (0-0.5); % Lymphocytes 14.4 % (20.5-51.1); % Monocytes 6.3 % (1.7-9.3); % Neutrophils 78.3 % (42.2-75.2); Absolute Eosinophils 0.1 10^3/uL (0-0.7); Absolute Immature Granulocytes 0.1 10^3/uL (0-0.05); Absolute Lymphocytes 1.6 10^3/uL (1.2-3.4); Absolute Monocytes 0.7 10^3/uL (0.1-0.6); Absolute Neutrophils 8.7 10^3/uL (1.4-6.5); Hematocrit 32.8 % (37.0-47.0); Hemoglobin 11.1 g/dL (12.0-16.0); Mean Corp Hgb Conc. 33.8 g/dL (33.0-37.0); Mean Corpuscular Hgb 27.5 pg (27.0-31.0); Mean Corpuscular Volume 81.4 fL (81.0-99.0); Mean Platelet Volume 9.7 fL (7.4-10.4); Nucleated Red Blood Cells % 0 %; Platelet Count 206 10^3/uL (130-400); Red Blood Cell Count 4.03 10^6/uL (4.20-5.40); Red Cell Dist. Width 14.4 % (11.5-14.5); White Blood Cell Count 11.1 10^3/uL (4.8-10.8)
[2024-08-26 07:15] VITALS: BP 115/63
[2024-08-26] MEDS: FLUSH (NSS) 2 FLUSH IV (07:55)
[2024-08-26] MEDS: ANCEF 10 IV ×2 (07:56→15:20)
[2024-08-26] MEDS: TYLENOL 650 MG PO (07:59)
[2024-08-26 08:58] LABS: Blood Urea Nitrogen 9 mg/dl (7-17); Calcium 8.4 mg/dl (8.4-10.2); Carbon Dioxide 24 mmol/L (22-30); Chloride 104 mmol/L (98-107); Estimated Creatinine Clearance > 125 ml/min; Glucose 108 mg/dl (70-99); Potassium 3.2 mmol/L (3.5-5.1); Sodium 139 mmol/L (135-145); eGFR > 60.00
--- NOTE | 2024-08-26 09:01 | W.PN.HOSP.TC ---
Today's Communication/Plan
-
Discharge planning today
Assessment / Plan
Assessment / Plan
Physical exam:
General: No acute distress
HEENT: Normocephalic, Atraumatic and Moist Mucous Membranes
Respiratory: Clear to Auscultation; Negative Wheezes, Rales or Rhonchi
Cardiac: Regular Rhythm and S1/S2
GI: Soft, Nontender and Nondistended
Musculoskeletal: Right lower extremity improving cellulitis.
Neuro: Awake, Alert and Oriented
Psych: Calm
A/P:
Impression:
Right lower extremity cellulitis--> improving
Sepsis due to cellulitis with fever, tachycardia, tachypnea, leukocytosis, and source right lower extremity cellulitis--> resolved sepsis.
Hyponatremia, 134-->139
Leukocytosis, 19.9-->11.1
Relative hypotension--> resolved
Hypertension
Hypokalemia
Conditions prior to admission:
Hyperlipidemia
Depression anxiety
Obesity
VERA
PLAN:
Replete K
Continue IV cefazolin 2 g every 8 hours and changed to oral after 4 PM dose today.
ID cleared for discharge later today.
Blood cultures no growth so far
Continue antihypertensives
ID consult appreciated
Seen x-ray of the tibia-fibula and no evidence of gas in the subcutaneous tissue
Continue statins and antidepressant and hormone replacement
Pain control
Elevate right lower extremity
Trend WBC count and temperature curve
DVT prophylaxis with Lovenox
CODE STATUS full code
Anticipated Discharge: Today
Subjective/Interval History
-
Date of Service: August 26, 2024
Patient doing better overall. Afebrile
Objective Data
-
Labs:
Laboratory Results
08/26/24
06:45
WBC 11.1 H
Hgb 11.1 L
Hct 32.8 L
Plt Count 206
Sodium 139
Potassium 3.2 L
Chloride 104
Carbon Dioxide 24
BUN 9
Creatinine 0.7
Glucose 108 H
Calcium 8.4
Vital Signs:
Vital Signs
Temp Pulse Resp BP Pulse Ox
98 F 86 17 115/63 95
08/26/24 07:15 08/26/24 07:15 08/26/24 07:15 08/26/24 07:15 08/26/24 07:15
I&O
08/25/24 08/26/24 08/27/24
06:59 06:59 06:59
Intake Total 1989 1280 / 1280
Balance 1989 1280 / 1280
[2024-08-26] MEDS: KCL 40 MEQ PO (10:09)
[2024-08-26 11:10] VITALS: BP 116/57
--- NOTE | 2024-08-26 13:11 | W.PN.ID1 ---
Date of Service
Date of Service: August 26, 2024
Today's Communication
Can dc home after 4pm cefazolin dose, then transition to high dose cephalexin 1000 mg po qid through 09/07/24.
Assessment / Plan
# Recurrent RLE cellulitis, improving
# Fever resolved
# Leukocytosis - decreasing
- recent RLE abscess drained in ED 07/22/24; cx + Group C strep.
- follow blood cx's x 2 neg to date
- Continue ALLAN-Wrap compression
-moisturize leg.
- Can dc home after 4pm cefazolin dose, then transition to high dose cephalexin 1000 mg po qid through 09/07/24.
- Can follow-up with me if she continues to have recurrent cellulitis in the future. I gave her my business card.
Chief Complaint
-: Cellulitis
Subjective / Review of Systems
Leg is better.
Vital Signs / Physical Exam
Vital Signs
Vital Signs
Temp Pulse Resp BP Pulse Ox
98.6 F 81 17 116/57 97
08/26/24 11:10 08/26/24 11:10 08/26/24 11:10 08/26/24 11:10 08/26/24 11:10
Physical Exam
Constitutional: No Acute Distress and Comfortable
Cardiovascular: Regular Rate and S1/S2
Pulmonary: Clear
Gastrointestinal: Soft, Non Tender and Non Distended
Extremities: Edema (RLE: decreased edema) and Erythema (RLE erythema receding from knee. + dry skin)
Neurological: AO x 3
Objective Data
Lab Data
Lab Results
08/26/24 06:45
08/26/24 06:45
Estimated Creat Clear > 125 ml/min 08/26/24 06:45
Lactic Acid 0.9 mmol/L (0.7-2.0) 08/24/24 22:15
Total Bilirubin 0.6 mg/dl (0.2-1.3) 08/24/24 14:36
AST 47 U/L (14-36) H 08/24/24 14:36
ALT 43 U/L (0-35) H 08/24/24 14:36
Alkaline Phosphatase 85 U/L (38-126) 08/24/24 14:36
Most recent labs reviewed.
Micro Results:
08/24/24 22:27 MRSA Screen - Final
Nose No Methicillin Resistant Staphylococcus aureus isolated.
08/24/24 17:56 Blood Culture - Preliminary
Blood/Venous No Growth in 24 hours- Final report to follow
08/24/24 17:44 Blood Culture - Preliminary
Blood/Venous No Growth in 24 hours- Final report to follow
Care Review
Plan reviewed with: Physician (Dr. Sanchez)
[2024-08-26 15:20] VITALS: BP 139/65
== END 2024-08-26 16:35 | disposition home or self-care (01) | DRG 872 ==
LOC: 3 WEST ACU 18:20
PROVIDERS: Physician Assistant Medical; Student in an Organized Health Care Education/Training Program; ADMITTING PHYSICIAN Hospitalist; CONSULT PHYSICIAN Internal Medicine Infectious Disease; EMERGENCY PHYSICIAN Emergency Medicine; FAMILY PHYSICIAN Internal Medicine
DX: A41.9 Sepsis, unspecified organism (principal); L03.115 Cellulitis of right lower limb; Z68.43 Body mass index [BMI] 50.0-59.9, adult; E87.1 Hypo-osmolality and hyponatremia; I10 Essential (primary) hypertension; E78.00 Pure hypercholesterolemia, unspecified; E87.6 Hypokalemia; F41.9 Anxiety disorder, unspecified; J45.909 Unspecified asthma, uncomplicated; E06.3 Autoimmune thyroiditis; R60.9 Edema, unspecified; R73.01 Impaired fasting glucose; I87.2 Venous insufficiency (chronic) (peripheral); E66.813 Obesity, class 3; G47.33 Obstructive sleep apnea (adult) (pediatric); F32.A Depression, unspecified; Z88.3 Allergy status to other anti-infective agents; Z88.0 Allergy status to penicillin; Z88.8 Allergy status to other drugs, medicaments and biological substances; Z79.890 Hormone replacement therapy
CPT/HCPCS: 73590; 80048; 80053; 83605; 83690; 85025; 87040; 87070; 96374; 97161; 99285

== ENCOUNTER → 2024-09-07 12:31 | Outpatient (REF) | payer OTHER, SELFPAY | LOC: WOUND 12:31 | PROVIDERS: ATTENDING PHYSICIAN Surgery; FAMILY PHYSICIAN Internal Medicine | DX: L97.522 Non-pressure chronic ulcer of other part of left foot with fat layer exposed (principal); I87.311 Chronic venous hypertension (idiopathic) with ulcer of right lower extremity; I87.2 Venous insufficiency (chronic) (peripheral); I89.0 Lymphedema, not elsewhere classified; I73.9 Peripheral vascular disease, unspecified; E66.9 Obesity, unspecified; I10 Essential (primary) hypertension | CPT/HCPCS: 99204 ==

== ENCOUNTER → 2024-09-14 09:37 | Outpatient (REF) | payer OTHER, SELFPAY | LOC: WOUND 09:37 | PROVIDERS: ATTENDING PHYSICIAN Surgery; FAMILY PHYSICIAN Internal Medicine | DX: L97.522 Non-pressure chronic ulcer of other part of left foot with fat layer exposed (principal); I87.311 Chronic venous hypertension (idiopathic) with ulcer of right lower extremity; I87.2 Venous insufficiency (chronic) (peripheral); I89.0 Lymphedema, not elsewhere classified; I73.9 Peripheral vascular disease, unspecified; E66.9 Obesity, unspecified; I10 Essential (primary) hypertension | CPT/HCPCS: 99212 ==

== ENCOUNTER → 2024-09-24 12:51 | Outpatient (REF) | payer OTHER, SELFPAY | LOC: RAD 12:51 | PROVIDERS: ATTENDING PHYSICIAN Surgery; FAMILY PHYSICIAN Internal Medicine | DX: L97.522 Non-pressure chronic ulcer of other part of left foot with fat layer exposed (principal); I87.2 Venous insufficiency (chronic) (peripheral); I73.9 Peripheral vascular disease, unspecified | CPT/HCPCS: 93922; 93925; 93971 ==

== ENCOUNTER 2024-09-30 06:36 | Day surgery (SDC) | payer OTHER, SELFPAY ==
[2024-09-30 11:27] VITALS: BMI 56.4
[2024-09-30 11:28] VITALS: BMI 56.4
[2024-09-30 11:42] VITALS: BP 141/82
--- NOTE | 2024-09-30 12:08 | SUR.OPER ---
No IVF ordered due to IVF shortage
[2024-09-30 13:19] VITALS: BP 113/66
[2024-09-30 13:30] VITALS: BP 132/83
[2024-09-30 13:45] VITALS: BP 130/69
== END 2024-09-30 14:03 | disposition home or self-care (01) ==
LOC: SDS 06:36
PROVIDERS: ATTENDING PHYSICIAN Internal Medicine Gastroenterology
DX: Z12.11 Encounter for screening for malignant neoplasm of colon (principal); K64.8 Other hemorrhoids; Z83.719 Family history of colon polyps, unspecified
CPT/HCPCS: G0105

== ENCOUNTER → 2024-12-29 12:39 | Outpatient (REF) | payer BC, SELFPAY | LOC: WDC 12:39 | PROVIDERS: ATTENDING PHYSICIAN Nurse Practitioner Adult Health; FAMILY PHYSICIAN Internal Medicine | DX: Z12.31 Encounter for screening mammogram for malignant neoplasm of breast (principal) | CPT/HCPCS: 77063; 77067 ==